=== PATIENT | female | born 1945 | race Caucasian/White ===

== ENCOUNTER 2016-10-22 17:36 | Emergency (ER) | payer MEDICARE ==
[~2016-10-22] VITALS: Ht 152.4 cm; Wt 70.0 kg
[~2016-10-22 17:36] MED LIST: THYR30TA2 PO
[2016-10-22 17:39] VITALS: BP 160/87; PULSE 72; RESP 15; O2SAT 98
--- NOTE | 2016-10-22 18:02 | ED.REPORT ---
HPI-Chest Pain 40 and Over Date of Service Oct 22, 2016 ED Provider: Wally Chavarria MD Patient is a 71 year old female with a history of fibromyalgia and Hickman palsy who presents to the ED complaining of left sided chest pain onset 1300. Associated symptoms include pain that radiated substernally, diaphoresis and shortness of breath. She also reports that she had pain in her back two days ago but it has since resolved. The patient denies nausea. Patient reports that the pain is exacerbated with exertion. She states that she has had intermittent chest pain for "awhile" now but has not been short of breath. Patient also states that she has had an CA due to an EKG reading Nursing Notes Stated Complaint: CHEST PAIN Chief Complaint: Chest Pain Nursing Notes Reviewed: Yes Allergies: Coded Allergies: amoxicillin (Verified Allergy, Intermediate, Rash, 10/22/16) NSAIDS (Non-Steroidal Anti-Inflamma (Verified Adverse Reaction, Intermediate, Nausea,Vomiting, 10/22/16) aspirin (Verified Adverse Reaction, Intermediate, abd painm nausea, ) codeine (Verified Adverse Reaction, Intermediate, Nausea,Vomiting, 10/22/16 ) magnesium sulfate (Verified Adverse Reaction, Intermediate, nausea, ) Scheduled Thyroid,Pork (Hendrum Thyroid) 30 Mg Tablet 30 MG PO DAILY General Time Seen by MD: 18:01 Chief Complaint Chest pain Hx Obtained From: Patient Arrived By: Walk-in Sudden in Onset?: Yes Onset Occurred: 1 - 4 hours ago Symptom Duration: Since onset Location: : Chest left Quality: Painful Severity: Current: Moderate Risk Factors )( CAD Risk Stratification No Diabetes mellitus, No Family history Risk factors reviewed, No risk factors HEART Score HEART for MACE: Low index of susp (0), Normal ECG (0), Age 65 or over (2), No risk factors known (0) HEART for MACE Score: 0-3 (low risk 0.9%-1.7%) PERC Rule Age 50 or over PERC Result: One or more crit "Yes" Past Medical History Past Medical History fibromyalgia Hickman palsy Smoking History Never Smoker Ambulatory Status Independent Review of Systems Constitutional: Denies: Chills, Fever Respiratory: Reports: Shortness of breath, Denies: Non-productive cough Cardiovascular: Reports: Chest pain, Dyspnea on exertion GI: Denies: Nausea Musculoskeletal: Reports: Back pain Skin: Reports Diaphoresis, Denies Itching, Denies Rash Neurologic: Denies: Numbness, Weakness Complete sys rev & neg: except as marked. Physical Exam Initial Vital Signs Vital Signs (First) Date Time Temp Pulse Resp B/P Pulse Ox O2 Delivery O2 Flow Rate FiO2 10/22/16 17:39 36.9 72 15 160/87 98 Room Air Initial VS: Reviewed General/Constitutional: Awake, Alert Respiratory / Chest: Atraumatic, Breath sounds NL, Breath sounds = bilat, No respiratory distress Cardiovascular: Heart rate NL, Regular rhythm, Heart sounds NL Abdomen: Atraumatic, Soft, Non-tender Lower Extremity / Pelvis / MS: Atraumatic, Full range of motion Skin: Atraumatic, Color NL, No rash, Warm, Dry Neurologic: Oriented X3, Speech NL Psychiatric: Affect NL, Mood NL Head / Eyes: Atraumatic, Normocephalic, PERRL, EOMI Interpretation & Diagnostics Lab Results Interpretation Result Diagram: 10/22/16191910/22/161919 Test 10/22/16 18:04 10/22/16 19:20 Hold Urine Received (Received) White Blood Count 6.5th/mm3 (3.8-10.1) Red Blood Count 4.86mil/mm3 (3.90-5.20) Hemoglobin 14.7g/dL (12.0-15.6) Hematocrit 43.9% (35.0-46.0) Mean Corpuscular Volume 90.3fL (81-100) Mean Corpuscular Hemoglobin 30.2pg (27.0-35.0) Mean Corpuscular Hemoglobin Concent 33.5% (32.0-37.0) Red Cell Distribution Width 14.0% (12.3-15.4) Platelet Count 220bil/L (150-400) Neutrophils (%) (Auto) 52.8% (40-74) Lymphocytes (%) (Auto) 33.1% (14-46) Monocytes (%) (Auto) 9.4% (4-12) Eosinophils (%) (Auto) 4.0% (0-5) Basophils (%) (Auto) 0.5% (0-3) D-Dimer 0.52mg/L FEU (<0.50) Sodium Level 140mEq/L (134-144) Potassium Level 4.4mEq/L (3.5-5.2) Chloride Level 104mEq/L (97-108) Carbon Dioxide Level 22mmol/L (18-29) Blood Urea Nitrogen 18mg/dL (8-27) Creatinine 0.74mg/dL (0.57-1.00) Estimat Glomerular Filtration Rate 111mL/min (>59) Glucose Level 89mg/dL (60-99) Calcium Level 9.3mg/dL (8.5-10.1) Magnesium Level 2.1mg/dL (1.6-2.6) Total Bilirubin 0.4mg/dL (0.0-1.2) Aspartate Amino Transf (AST/SGOT) 41U/L (0-50) Alanine Aminotransferase (ALT/SGPT) 44U/L (0-32) Alkaline Phosphatase 104U/L (25-165) Troponin T < 0.010ug/L (0.0-0.011) Total Protein 6.7g/dL (6.4-8.4) Albumin 4.3g/dL (3.4-5.0) ECG Interpretation ECG Interpretation: premature atrial complex Time: 18:13 Interpreted by: ED physician Normal ECG Interpretation: Normal rate (66), Normal sinus rhythm CT Chest Interpretation IMPRESSION: 1. Cause of chest pain is not identified. No acute disease is seen in the lungs. No evidence for pulmonary embolus. Aorta and great vessels from the arch not show any evidence for aneurysmal changes or dissection. 2. Small hiatal hernia. Dictated by: Eddie Bradford M.D. on 10/22/2016 at 21:56 Approved by: Eddie Bradford M.D. on 10/22/2016 at 22:00 Study type: CT pulm angiogram Interpretation / Wet Read by: Interpret - Radiologist Re-Eval/Medical Decision Time of Eval: 19:53 Re-Evaluation/Progress Note: Discussed abdomen CT and lab results. Plan for CT. Time of Eval: 22:58 Patient Status: Condition improved Re-Evaluation/Progress Note: Discussed labs and CT results. Discussed plan for discharge. Patient understands and agrees to plan. All questions were addressed Counseled Regarding: Diagnosis, Lab results, Need for follow-up, When/why to return to ED Discharge & Departure Primary Impression: Chest pain Chest pain type: unspecified Qualified Code: R07.9 - Chest pain, unspecified Disposition: Home Discharge Condition All VS Reviewed: Yes Condition: Stable Patient Instructions: Chest Pain (ED) Additional Instructions: Your chest x-ray, EKG and CT scan were normal and reassuring. An immediately dangerous cause for your pain was not identified at this time. Call your primary care physician tomorrow to schedule a follow up appointment this week. Return to the emergency department if you develop any new or concerning symptoms. Referrals: Jeannette Bowden (PCP) Chyna Attestation Portions of this note were transcribed by Niru Glover. I, Dr. Chavarria personally performed the history, physical exam and medical decision-making; I reviewed and confirmed the accuracy of the information in the transcribed note. Signed by: Chyna Brewster, 10/22/16 copies to: Jeannette Bowden Kirk H MD Oct 22, 2016 18:02 Poonam Glover Oct 22, 2016 18:09
--- NOTE | 2016-10-22 19:21 | DRSVH ---
PROCEDURE: X-RAY CHEST ONE VIEW, PORTABLE ([id number]) INDICATIONS: chest pain TECHNIQUE: One view of the chest was acquired. COMPARISON: None. FINDINGS: Surgical changes and devices: photography colorist leads are seen over the chest. Lungs and pleura: No pleural effusions or pneumothorax. Lungs are clear. Mediastinum: Mediastinal contours appear normal. Heart size is normal. Bones and chest wall: No suspicious bony lesions. Overlying soft tissues appear unremarkable. IMPRESSION: No acute or active disease is seen in the right portable chest. Dictated by: Eddie Bradford M.D. on 10/22/2016 at 19:19 Approved by: Eddie Bradford M.D. on 10/22/2016 at 19:19
[2016-10-22 19:30] LABS: BASOPHILS % (AUTO) 0.5 % (0-3); MONOCYTES % (AUTO) 9.4 % (4-12); Mean Corpuscular Hemoglobin 30.2 pg (27.0-35.0); Mean Corpuscular Volume 90.3 fL (81-100); NEUTROPHILS % (AUTO) 52.8 % (40-74); Platelet Count 220 bil/L (150-400)
[2016-10-22 20:04] LABS: Magnesium 2.1 mg/dL (1.6-2.6)
[2016-10-22 20:09] LABS: TROPONIN T < 0.010 ug/L (0.0-0.011)
[2016-10-22 20:15] VITALS: BP 145/76; PULSE 71; RESP 18; O2SAT 98
--- NOTE | 2016-10-22 22:01 | DRSVH ---
PROCEDURE: CT ANGIO CHEST PULMONARY EMBOLISM ([id number]) INDICATIONS: chest pain TECHNIQUE: After the administration of intravenous contrast, 2 mm thick sections acquired from the pulmonary api justina to the posterior costophrenic angles. 3-dimensional maximum intensity projection (MIP) coronal a nd sagittal reformats were then acquired through the thorax. For radiation dose reduction, the follo wing was used: automated exposure control, adjustment of mA and/or kV according to patient size. COMPARISON: [facility], CR, XR CHEST 1VW (PORTABLE), 10/22/2016, 19:13. FINDINGS: Image quality: Good Pulmonary arteries: Pulmonary arteries are normal in size, and demonstrate no intraluminal filling d efects to suggest central pulmonary embolism. Lungs and pleura: Lungs are clear. No pleural effusions or pneumothorax. Central and peripheral ai rways are patent. Mediastinum: Heart size is normal, without pericardial effusion. No mediastinal or hilar adenopathy . Thoracic aorta is normal in caliber and enhancement. Esophagus is normal in caliber, with a small hiatal hernia Bones and chest wall: No suspicious bony lesions. Ribs and thoracic spine appear intact throughout. Thyroid gland is within normal limits. No axillary or supraclavicular adenopathy. Abdomen: Visualized upper abdominal solid organs appear normal in the early arterial phase of enhanc ement. IMPRESSION: 1. Cause of chest pain is not identified. No acute disease is seen in the lungs. No evidence for pulm onary embolus. Aorta and great vessels from the arch not show any evidence for aneurysmal changes or dissection. 2. Small hiatal hernia. Dictated by: Eddie Bradford M.D. on 10/22/2016 at 21:56 Approved by: Eddie Bradford M.D. on 10/22/2016 at 22:00
[2016-10-22 22:55] VITALS: BP 146/77; PULSE 82; RESP 16; O2SAT 98
[2016-10-22 23:19] VITALS: BP 146/77; PULSE 82; RESP 16; O2SAT 98
== END 2016-10-22 23:20 | disposition home or self-care (01) ==
LOC: SED 17:36
DX: R07.9 Chest pain, unspecified (principal); Z88.0 Allergy status to penicillin; Z88.2 Allergy status to sulfonamides; Z88.5 Allergy status to narcotic agent; Z88.6 Allergy status to analgesic agent
CPT/HCPCS: 36415; 71010; 71275; 80053; 83735; 84484; 85025; 85378; 93005; 99285; Q9967